=== PATIENT | male | born 1960 | race American Indian/Alaskan Native ===

== ENCOUNTER 2017-03-09 04:17 | Emergency (ER) | payer BC ==
--- NOTE | 2017-03-09 05:51 | XRay Report ---
FINAL REPORT PROCEDURE: XR SHOULDER 2+V RT TECHNIQUE: Right shoulder radiographs including AP views in internal and external rotation and abduction. CPT 88006 HISTORY: pain COMPARISON: No prior studies are available for comparison. FINDINGS: Fracture (s) and/or Dislocation(s): None . Joint space(s): Normal . Soft tissues: Normal . Bone mineralization: Normal . Foreign bodies: None . There is an incidental calcified granuloma at the right lung apex. IMPRESSION: Normal Examination
--- NOTE | 2017-03-09 05:53 | XRay Report ---
FINAL REPORT PROCEDURE: XR KNEE 1-2V RT TECHNIQUE: Right knee radiographs, AP, lateral and sunrise views. CPT 64538 HISTORY: pain COMPARISON: No prior studies are available for comparison. FINDINGS: Fracture (s) and/or Dislocation(s): None . Alignment: Normal . Joint space(s): Normal . Soft tissues: Normal . Bone mineralization: Normal . Foreign bodies: None . There is a curvilinear bony density in the popliteal region which is probably an incidental fabella. IMPRESSION: There is no acute bony or soft tissue abnormality..
[2017-03-09] MEDS ORDERED: TORADOL IM ONE (07:29)
--- NOTE | 2017-03-09 07:29 | Emergency Department Report ---
ED Lower Extremity HPI - General Chief Complaint: Extremity Injury, Upper Stated Complaint: RIGHT SHOULDER,KNEE PAIN Time Seen by Provider: 03/09/17 07:17 Source: patient Mode of arrival: Ambulatory Limitations: No Limitations - History of Present Illness MD Complaint: knee injury, other (shoulder pain) -: week(s) Injury: Knee: Right Severity: moderate Improves With: NSAID (sp colonoscpy can not take) Context: other (no trauma) - Related Data Home Medications Medication Instructions Recorded Confirmed Last Taken Carvedilol [Coreg] 25 mg PO BID 07/17/13 04/08/16 04/07/16 Clopidogrel [Plavix] 75 mg PO QDAY 07/17/13 04/08/16 04/07/16 Lisinopril [Zestril TAB] 40 mg PO DAILY 07/17/13 04/08/16 04/07/16 [place]-3 Fatty Acids/Fish Oil [Fish 1,000 mg PO DAILY 04/08/16 04/08/16 04/07/16 Oil] Ubidecarenone [Coq-10] 200 mg PO DAILY 04/08/16 04/08/16 04/07/16 Zinc 50 mg PO DAILY 04/08/16 04/08/16 04/07/16 amLODIPine [Norvasc] 10 mg PO QDAY 04/08/16 04/08/16 04/07/16 Previous Rx's Medication Instructions Recorded Last Taken Type Atorvastatin [Lipitor] 40 mg PO QHS #30 tab 07/18/13 04/07/16 Rx Aspirin [Aspirin BABY CHEW TAB] 81 mg PO QDAY #30 tab.chew 04/09/16 Unknown Rx Spironolactone [Aldactone] 25 mg PO QDAY #30 tablet 04/09/16 Unknown Rx methylPREDNISolone [Medrol] 4 mg PO DAILY #1 tab.ds.pk 03/09/17 Unknown Rx traMADol [Ultram] 50 mg PO Q6HR PRN #10 tablet 03/09/17 Unknown Rx Allergies Allergy/AdvReac Type Severity Reaction Status Date / Time No Known Allergies Allergy Verified 04/08/16 08:11 ED Review of Systems ROS: Stated complaint: RIGHT SHOULDER,KNEE PAIN Other details as noted in HPI Comment: All other systems reviewed and negative Musculoskeletal: as per HPI, other (r shoulder and knee pain ;no trauma) ED Past Medical Hx - Past Medical History Hx Hypertension: Yes Hx Heart Attack/AMI: Yes Hx Congestive Heart Failure: Yes Hx Sickle Cell Disease: No Hx HIV: No Additional medical history: Cardiac stents x2 (2010) - Surgical History Hx Coronary Stent: Yes Hx Appendectomy: Yes - Social History Smoking Status: Never Smoker Substance Use Type: None - Medications Home Medications: Home Medications Medication Instructions Recorded Confirmed Last Taken Type Carvedilol [Coreg] 25 mg PO BID 07/17/13 04/08/16 04/07/16 History Clopidogrel [Plavix] 75 mg PO QDAY 07/17/13 04/08/16 04/07/16 History Lisinopril [Zestril TAB] 40 mg PO DAILY 07/17/13 04/08/16 04/07/16 History Atorvastatin [Lipitor] 40 mg PO QHS #30 tab 07/18/13 04/08/16 04/07/16 Rx [place] Fatty Acids/Fish Oil [Fish 1,000 mg PO DAILY 04/08/16 04/08/16 04/07/16 History Oil] Ubidecarenone [Coq-10] 200 mg PO DAILY 04/08/16 04/08/16 04/07/16 History Zinc 50 mg PO DAILY 04/08/16 04/08/16 04/07/16 History amLODIPine [Norvasc] 10 mg PO QDAY 04/08/16 04/08/16 04/07/16 History Aspirin [Aspirin BABY CHEW TAB] 81 mg PO QDAY #30 tab.chew 04/09/16 Unknown Rx Spironolactone [Aldactone] 25 mg PO QDAY #30 tablet 04/09/16 Unknown Rx methylPREDNISolone [Medrol] 4 mg PO DAILY #1 tab.ds.pk 03/09/17 Unknown Rx traMADol [Ultram] 50 mg PO Q6HR PRN #10 tablet 03/09/17 Unknown Rx ED Physical Exam - General Limitations: No Limitations General appearance: alert - Head Head exam: Present: atraumatic - Eye Eye exam: Present: PERRL - ENT ENT exam: Present: mucous membranes moist - Neck Neck exam: Present: normal inspection - Respiratory Respiratory exam: Present: normal lung sounds bilaterally - Cardiovascular Cardiovascular Exam: Present: regular rate - Extremities Exam Extremities exam: Present: full ROM, normal capillary refill - Expanded Upper Extremity Exam Right Shoulder Exam: Present: normal inspection, full ROM, other (ache, thinks its from sitting at computer all day). Absent: tenderness, swelling, abrasion, laceration, ecchymosis, deformity, crepidus, dislocation, erythema, tenderness over AC joint Upper Arm exam: Present: normal inspection Elbow exam: Present: normal inspection - Expanded Lower Extremity Exam Right Upper Leg exam: Present: normal inspection Knee exam: Present: full ROM, crepidus (mild but no redness, tenderness, joint line tenerness, laxity; ambulatory), full knee extension (but states he could not move like this when he got here. ). 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 ED Disposition Clinical Impression: Arthritis Disposition: DC-01 TO HOME OR SELFCARE Is pt being admited?: No Does the pt Need Aspirin: No Condition: Stable Instructions: Osteoarthritis (ED) Additional Instructions: heat rest meds as ordered continue home meds may take motrin once your 1w post colonoscopy follow up with pcp for evaluation for gout (same treatment as today0 Prescriptions: methylPREDNISolone [Medrol] 4 mg PO DAILY #1 tab.ds.pk traMADol [Ultram] 50 mg PO Q6HR PRN #10 tablet PRN Reason: Pain Referrals: PRIMARY CARE, [Primary Care Provider] - 3-5 Days SHAYLA TREJO MD [Staff Physician] - 3-5 Days Time of Disposition: 07:34
[2017-03-09] MEDS ORDERED: DELTASONE PO ONE (07:30)
[2017-03-09] MEDS ORDERED: ZESTRIL PO ONE (08:00)
--- NOTE | 2017-03-09 08:02 | Event Note ---
Date: 03/09/17 (bp elevated on dc) Pt has not taken his bp meds. a/o x 4; neuro intact ambulatory in er will take the rest of meds when he gets home.
[2017-03-09 08:08] VITALS: BP 160/101
== END 2017-03-09 08:11 | disposition home or self-care (01) ==
LOC: ED 04:17
DX: M19.90 Unspecified osteoarthritis, unspecified site (principal); I11.0 Hypertensive heart disease with heart failure; I50.9 Heart failure, unspecified; I25.2 Old myocardial infarction; Z95.1 Presence of aortocoronary bypass graft; Z79.82 Long term (current) use of aspirin
CPT/HCPCS: 73030; 73560; 96372; 99283; J1885; J7512

== ENCOUNTER 2017-07-01 20:08 | Emergency (ER) | payer BC ==
[2017-07-01 20:25] VITALS: BP 177/90
[2017-07-01] MEDS ORDERED: ASPIRIN PO ONE (20:25)
[2017-07-01 20:37] LABS: Basophils % (Auto) 0.6 % (0.0-1.8); Eosinophils # (Auto) 0.1 K/mm3 (0.0-0.4); Eosinophils % (Auto) 1.8 % (0.0-4.3); Hematocrit 43.4 % (35.5-45.6); Hemoglobin 14.6 gm/dl (11.8-15.2); Lymphocytes # (Auto) 2.3 K/mm3 (1.2-5.4); Mean Corpuscular HGB Conc 34 % (32-34); Mean Corpuscular Hemoglobin 28 pg (28-32); Mean Corpuscular Volume 84 fl (84-94); Monocytes # (Auto) 0.5 K/mm3 (0.0-0.8); Monocytes % (Auto) 6.7 % (0.0-7.3); Platelet Count 294 K/mm3 (140-440); Red Blood Count 5.14 M/mm3 (3.65-5.03); Red Cell Distribution Width 15.1 % (13.2-15.2)
[2017-07-01 20:59] LABS: BUN/Creatinine Ratio 11; Blood Urea Nitrogen 9 mg/dL (9-20); Calcium 9.3 mg/dL (8.4-10.2); Hemolysis Index 15
== END 2017-07-01 23:50 | disposition left against medical advice (07) ==
LOC: ED 20:08
DX: R07.9 Chest pain, unspecified (principal); Z53.21 Procedure and treatment not carried out due to patient leaving prior to being seen by health care provider
CPT/HCPCS: 36415; 80048; 84484; 85025; 93005; 93010

== ENCOUNTER 2017-07-08 16:18 | Emergency (ER) | payer BC ==
[2017-07-08 16:38] VITALS: BP 133/87
[2017-07-08] MEDS ORDERED: ASPIRIN PO ONE (21:14)
--- NOTE | 2017-07-08 21:29 | Event Note ---
Date: 07/08/17 Patient is a 56-year-old male presents for chest pain patient has significant cardiac history and cardiac dozen family. Wall performed ACS rule out I and have patient be seen by main side ED.
--- NOTE | 2017-07-08 21:57 | XRay Report ---
FINAL REPORT EXAM: XR CHEST ROUTINE 2V HISTORY: Chest Pain TECHNIQUE: PA and lateral views of the chest PRIORS: None. FINDINGS: Lines, tubes, and devices: N/A Lungs and pleura: Trachea is normal in position. Lungs are clear of infiltrate, pleural effusion, vascular congestion, or pneumothorax. Cardiomediastinal silhouette: Cardiac and mediastinal silhouettes are unremarkable. Other: Bony structures are intact. IMPRESSION: No acute cardiopulmonary process seen.
[2017-07-08 22:00] LABS: Basophils # (Auto) 0.1 K/mm3 (0.0-0.1); Basophils % (Auto) 0.7 % (0.0-1.8); Eosinophils # (Auto) 0.2 K/mm3 (0.0-0.4); Eosinophils % (Auto) 2.4 % (0.0-4.3); Hematocrit 41.7 % (35.5-45.6); Hemoglobin 13.8 gm/dl (11.8-15.2); Lymphocytes # (Auto) 2.5 K/mm3 (1.2-5.4); Lymphocytes % (Auto) 34.3 % (13.4-35.0); Mean Corpuscular HGB Conc 33 % (32-34); Mean Corpuscular Hemoglobin 28 pg (28-32); Mean Corpuscular Volume 86 fl (84-94); Monocytes # (Auto) 0.6 K/mm3 (0.0-0.8); Monocytes % (Auto) 7.5 % (0.0-7.3); Platelet Count 248 K/mm3 (140-440); Red Blood Count 4.86 M/mm3 (3.65-5.03); Red Cell Distribution Width 15.1 % (13.2-15.2)
[2017-07-08 22:06] LABS: BUN/Creatinine Ratio 13; Blood Urea Nitrogen 9 mg/dL (9-20); Calcium 8.7 mg/dL (8.4-10.2); Hemolysis Index 15
[2017-07-08 22:08] LABS: INR 0.93 (0.87-1.13)
[2017-07-08 22:09] LABS: Partial Thromboplastin Time 30.3 Sec. (24.2-36.6)
--- NOTE | 2017-07-08 23:43 | Emergency Department Report ---
HPI - General Chief Complaint: Chest Pain Time Seen by Provider: 07/08/17 23:28 - HPI HPI: The patient is a 56-year-old male with a history of congestive heart failure, whom presents for evaluation of dyspnea and chest pain. The patient reports 2- 3 days of mild dysuria, exacerbated with exertion or activity, improved with rest, and associated with intermittent mild burning in quality chest pain for the past one day, exacerbated with eating, resolved for the past 4-5 hours. The patient denies fever, neck pain, parasthesias, cough, hemoptysis, palpitations, dizziness, syncope, unilateral leg swelling, calf muscle pain. Patient also denies cocaine or other stimulant use, history of DVT or PE, recent immobilization, or history of cancer. ED Past Medical Hx - Past Medical History Hx Hypertension: Yes Hx Heart Attack/AMI: Yes Hx Congestive Heart Failure: Yes Hx Sickle Cell Disease: No Hx HIV: No Additional medical history: Cardiac stents x2 (2010)///PT for right shoulder - Surgical History Hx Coronary Stent: Yes Hx Appendectomy: Yes - Social History Smoking Status: Never Smoker Substance Use Type: Alcohol - Medications Home Medications: Home Medications Medication Instructions Recorded Confirmed Last Taken Type Carvedilol [Coreg] 25 mg PO BID 07/17/13 04/08/16 04/07/16 History Clopidogrel [Plavix] 75 mg PO QDAY 07/17/13 04/08/16 04/07/16 History Lisinopril [Zestril TAB] 40 mg PO DAILY 07/17/13 04/08/16 04/07/16 History Atorvastatin [Lipitor] 40 mg PO QHS #30 tab 07/18/13 04/08/16 04/07/16 Rx [place]-3 Fatty Acids/Fish Oil [Fish 1,000 mg PO DAILY 04/08/16 04/08/16 04/07/16 History Oil] Ubidecarenone [Coq-10] 200 mg PO DAILY 04/08/16 04/08/16 04/07/16 History Zinc 50 mg PO DAILY 04/08/16 04/08/16 04/07/16 History amLODIPine [Norvasc] 10 mg PO QDAY 04/08/16 04/08/16 04/07/16 History Aspirin [Aspirin BABY CHEW TAB] 81 mg PO QDAY #30 tab.chew 04/09/16 Unknown Rx Spironolactone [Aldactone] 25 mg PO QDAY #30 tablet 04/09/16 Unknown Rx methylPREDNISolone [Medrol] 4 mg PO DAILY #1 tab.ds.pk 03/09/17 Unknown Rx traMADol [Ultram] 50 mg PO Q6HR PRN #10 tablet 03/09/17 Unknown Rx Omeprazole Magnesium [PriLOSEC Otc] 20 mg PO QDAY #14 tablet. 07/08/17 Unknown Rx traMADol [Ultram 50 MG tab] 50 mg PO Q6HR PRN #15 tablet 07/08/17 Unknown Rx ED Review of Systems ROS: Stated complaint: CHEST PAIN Other details as noted in HPI Constitutional: denies: fever ENT: denies: throat or neck pain Respiratory: denies: cough reports shortness of breath Cardiovascular: reports: chest pain Endocrine: denies unexplained weight loss or gain Gastrointestinal: denies: abdominal pain, nausea Genitourinary: denies: dysuria Musculoskeletal: denies: leg swelling Skin: denies: rash Neurological: denies: headache Hematological/Lymphatic: denies: easy bleeding or easy bruising Psych: denies sadness or hopelessness Physical Exam - Physical Exam Vital Signs: Vital Signs 07/08/17 16:35 Temperature 98 F Pulse Rate 64 Respiratory 18 Rate Blood Pressure 133/87 O2 Sat by Pulse 100 Oximetry Physical Exam: General: well-nourished, well-developed, no acute distress Head: Normocephalic, atraumatic Eyes: normal sclera ENT: Mucous membranes are pink and moist Neck: trachea midline, neck supple, No neck stiffness, no cervical adenopathy Respiratory: Breath sounds equal bilaterally, no wheezing, rales, or rhonchi Cardio: S1 and S2 present, no murmurs, rubs, gallops, capillary refill is brisk Abdomen: Normoactive bowel sounds, soft abdomen, no rigidity, no guarding or rebound tenderness Musc: No pitting edema Skin: No rash Neuro: no facial drooping, normal speech Psych: Normal affect ED Course Vital Signs 07/08/17 16:35 Temperature 98 F Pulse Rate 64 Respiratory 18 Rate Blood Pressure 133/87 O2 Sat by Pulse 100 Oximetry ED Medical Decision Making - Lab Data Result diagrams: 07/08/17 21:21 07/08/17 21:21 - Medical Decision Making The patient was seen and examined by myself. The patient is placed on a hospital monitor and continuous pulse ox. On initial evaluation, the patient was found to be in no distress. EKG was negative for findings suggestive of acute cardiac infarct. Labs and imaging are obtained. Chest x-ray is negative for pneumothorax, focal consolidation, pulmonary vascular congestion, pleural effusion, or other obvious acute cardiopulmonary disease process. Lab results were non-concerning including levels of troponin, WBC, hemoglobin, hematocrit, electrolytes, renal function. The patient was reevaluated and reported that their symptoms were markedly improved. As the patient has a PAWAN risk score less than 2, and a well's score less than 2, the patient is at low risk of ACS or pulmonary emboli etiology of their symptoms. The patient is stable for discharge with outpatient follow-up. The patient is given follow-up and return instructions. The patient expressed understanding and agreed with the plan. The patient is discharged in stable condition. Critical care attestation.: If time is entered above; I have spent that time in minutes in the direct care of this critically ill patient, excluding procedure time. ED Disposition Clinical Impression: Acute on chronic systolic heart failure Chest pain Qualifiers: Chest pain type: unspecified Qualified Code(s): R07.9 - Chest pain, unspecified Disposition: DC-01 TO HOME OR SELFCARE Is pt being admited?: No Does the pt Need Aspirin: No Condition: Stable Instructions: Heart Failure (ED), Diet for Ulcers and Gastritis (ED), Gastroesophageal Reflux Disease (ED), Costochondritis (ED) Referrals: RADHA MEDINA MD [Primary Care Provider] - 3-5 Days Time of Disposition: 23:36
== END 2017-07-08 23:53 | disposition home or self-care (01) ==
LOC: ED 16:18
DX: I11.0 Hypertensive heart disease with heart failure (principal); I50.23 Acute on chronic systolic (congestive) heart failure; I25.2 Old myocardial infarction; Z95.818 Presence of other cardiac implants and grafts; Z90.49 Acquired absence of other specified parts of digestive tract
CPT/HCPCS: 36415; 71046; 80048; 84484; 85025; 85610; 85730; 86850; 86900; 86901; 93005; 93010